=== PATIENT | female | born 1950 | race Caucasian/White ===

== ENCOUNTER → 2017-09-27 | Outpatient (CLI) | payer OTHER ==
[~2017-09-27] MED LIST: DICY20TA70 PO; GLY5 FT; LISI-349 PO; LISI20TA29 PO; MAX75 FT; PRA20 PO; PRAV40TA77 PO; ROSU20TA13 PO; SAXA1TBM PO; SITA1TBM4 PO; TRIA-19 PO; VITAMINS
--- NOTE | 2017-09-27 14:22 | RADIOLOGY IMAGING REPORT ---
FACILITY: [facility] PATIENT NAME: EDDIE KONG : [id number] MR: [id number] V: [id number] EXAM DATE: [id number] ORDERING PHYSICIAN: GRICELDA SCHAEFFER TECHNOLOGIST: Susan Narvaez PROCEDURE:BILATERAL DIGITAL SCREENING MAMMOGRAM WITH CAD ASSISTED INTERPRETATION & 3D TOMOSYNTHESIS COMPARISON:05/28/2013, 03/10/2012 INDICATIONS:SCREENING/FAMILY HISTORY OF BREAST CARCINOMA IN A PATERNAL AUNT & OVARIAN CARCINOMA IN A PATERNAL AUNT. VIEWS OBTAINED: Bilateral 2D full field CC & MLO & corresponding 3D tomography TISSUE DENSITY: Scattered fibroglandular densities. FINDINGS: There is no mammographic finding suspicious for malignancy, & no significant change compared to prior mammograms. DIAGNOSTIC CATEGORY 1--NEGATIVE. RECOMMENDATIONS: ROUTINE ANNUAL SCREENING BILATERAL MAMMOGRAM AND CLINICAL EVALUATION. IMPRESSION: BIRADS 1: Negative. Dictated by: Joselyn Kaur M.D. on 09/27/2017 at 12:16 Transcribed by: HOMER on 09/27/2017 at 13:23 Approved by: Joselyn Kaur M.D. on 09/27/2017 at 14:21 [facility]
== END ==
LOC: MAMO 02:48
PROVIDERS: ATTEND Emergency Medicine
DX: Z12.31 Encounter for screening mammogram for malignant neoplasm of breast (principal)
CPT/HCPCS: 77063; 77067

== ENCOUNTER 2018-03-13 01:47 | Inpatient (IN) | payer MEDICARE, OTHER ==
[2018-03-13] VITALS (7 sets, daily range): BP systolic 126–151; BP diastolic 66–77
[~2018-03-13] VITALS: Ht 154.9 cm; Wt 57.6 kg
[~2018-03-13 01:47] MED LIST changes: -ROSU20TA13 PO; +ROSU20TA5 PO
[2018-03-13] MEDS ORDERED: NS(*) 0.9% 1000 ML BAG 1,000 ML IV ONE ×2 (01:59→03:50)
--- NOTE | 2018-03-13 01:59 | ER Report ---
History and Physical Time Seen By MD: 01:50 HPI/ROS CHIEF COMPLAINT: abd pain HISTORY OF PRESENT ILLNESS: Pt states that tonight started to feel bloated "i thought i ate too much". at midnight developed sharp abdominal pain that is right sided. + nausea, + diarrhea. no vomiting. Unable to get comfortable. Pt had some radiation to back that just started. no dysuria. no hematuria. tried pepto but did not help. pain started at midnight. REVIEW OF SYSTEMS: Constitutional: No fever, no chills. Eyes: No discharge. ENT: No sore throat. Cardiovascular: No chest pain, no palpitations. Respiratory: No cough, no shortness of breath. Gastrointestinal: + abdominal pain, +nausea, +diarrhea, no vomiting. Genitourinary: No hematuria. Musculoskeletal: No back pain. Skin: No rashes. Neurological: No headache. Allergies: Coded Allergies: No Known Allergies (Verified Allergy, Intermediate, 03/16/09) Home Meds Active Scripts Sitagliptin Phos/Metformin Hcl (JANUMET XR 50-1,000 MG TABLET) 1 Each Tbmp.24hr , 1 EACH PO DAILY, #90 TAB 1 Refill Prov:GRICELDA SCHAEFFER MD 10/28/17 Rosuvastatin Calcium (Rosuvastatin Calcium) 20 Mg Tablet, 1 TAB PO DAILY, #30 TAB 11 Refills Prov:GRICELDA SCHAEFFER MD 10/11/17 Triamterene/Hydrochlorothiazid (MAXZIDE 37.5 MG-25 MG TABLET) 1 Each Tablet, 1 TAB PO DAILY, #90 TAB 3 Refills Prov:GRICELDA SCHAEFFER MD 09/10/17 Lisinopril (LISINOPRIL) 20 Mg Tablet, 1 TAB PO QDAY, #90 TAB 4 Refills Prov:KAYDEN STACY MD 06/05/17 Dicyclomine Hcl (DICYCLOMINE HCL) 20 Mg Tablet, 20 MG PO BID, #180 TAB 3 Refills Prov:KAYDEN STACY MD 05/27/17 Past Medical/Surgical History Pmhx: cervical ca, dm, htn, hyperlipid, ibs Pshx: ta, tubal Reviewed Nurses Notes: Yes Old Medical Records Reviewed: Yes Smoking Status: Former Smoker Hx Alcohol Use: No Constitutional Vital Sign - Last 24 Hours 03/13/18 03/13/18 03/13/1803/13/18 01:51 01:51 02:00 02:02 Temp 97.4 Pulse 77 78 Resp 16 B/P (MAP) 173/92 173/92 (119) 161/73 (102) Pulse Ox 98 99 O2 Delivery Room Air 03/13/18 03/13/18 03/13/18 03/13/18 02:17 02:30 02:32 02:37 Pulse 76 70 73 B/P (MAP) 162/78 (106) 162/78 (106) Pulse Ox 99 98 97 03/13/18 03/13/18 03/13/18 03/13/18 03:05 03:10 03:15 03:30 Pulse 80 75 B/P (MAP) 145/77 (99) 128/69 (88) Pulse Ox 94 98 94 03/13/18 03/13/18 03/13/18 03/13/18 03:45 03:50 04:00 04:05 Pulse 73 75 B/P (MAP) 129/75 (93) Pulse Ox 95 98 96 03/13/18 03/13/18 03/13/18 04:20 04:30 04:35 Pulse 80 86 B/P (MAP) 164/67 (99) Pulse Ox 96 94 Physical Exam General Appearance: The patient is alert, has no immediate need for airway protection and no signs of toxicity. Eyes: Pupils equal and round no pallor or injection, EOMI ENT: no pharyngeal erythema or exudates, Mucous membranes are moist Respiratory: There are no retractions, lungs are clear to auscultation. Cardiovascular: Regular rate and rhythm. pulses are equal and symmetrical Gastrointestinal: Abdomen is soft with r sided abdominal tender, no masses, bowel sounds decreased,+ guarding, no rigidity or rebound Neurological: Cranial nerves II-XII grossly intact, no sensory or motor loss Skin: Warm and dry, no rashes. Musculoskeletal: Neck is supple non tender, no vertebral tenderness Extremities are nontender, non swollen and have full range of motion. DIFFERENTIAL DIAGNOSIS: After history and physical exam differential diagnosis was considered for appendicitis, cholecystitis, coliitis, psbo, sbo Medical Decision Making Data Points Result Diagram: 03/13/1821703/13/18217 Laboratory Hematology Test 03/13/18 02:18 03/13/18 03:06 03/13/18 04:29 Red Blood Count 4.34 M/uL (4.17-5.56) Mean Corpuscular Volume 87.4 fL (80.0-96.0) Mean Corpuscular Hemoglobin 30.3 pg (26.0-33.0) Mean Corpuscular Hemoglobin Concent 34.6 g/dL (32.0-36.0) Red Cell Distribution Width 13.1 % (11.5-14.5) Mean Platelet Volume 6.6 fL (7.2-11.1) Neutrophils (%) (Auto) 66.1 % (39.4-72.5) Lymphocytes (%) (Auto) 25.8 % (17.6-49.6) Monocytes (%) (Auto) 6.2 % (4.1-12.4) Eosinophils (%) (Auto) 1.1 % (0.4-6.7) Basophils (%) (Auto) 0.8 % (0.3-1.4) Nucleated RBC Relative Count (auto) 0.1 /100WBC Neutrophils # (Auto) 4.5 K/uL (2.0-7.4) Lymphocytes # (Auto) 1.8 K/uL (1.3-3.6) Monocytes # (Auto) 0.4 K/uL (0.3-1.0) Eosinophils # (Auto) 0.1 K/uL (0.0-0.5) Basophils # (Auto) 0.1 K/uL (0.0-0.1) Nucleated RBC Absolute Count (auto) 0.01 K/uL Sodium Level 136 mmol/L (137-145) Potassium Level 3.9 mmol/L (3.5-5.0) Chloride Level 100 mmol/L (98-107) Carbon Dioxide Level 23 mmol/L (22-31) Blood Urea Nitrogen 22 mg/dl (7-18) Creatinine 1.10 mg/dl (0.52-1.04) Glomerular Filtration Rate Calc 49.8 Random Glucose 214 mg/dl (75-110) Calcium Level 9.3 mg/dl (8.4-10.2) Total Bilirubin 0.3 mg/dl (0.2-1.3) Aspartate Amino Transf (AST/SGOT) 20 U/L (0-35) Alanine Aminotransferase (ALT/SGPT) 29 U/L (0-56) Alkaline Phosphatase 69 U/L (0-126) Total Protein 7.2 g/dl (6.3-8.2) Albumin 4.4 g/dl (3.5-5.0) Lipase 251 U/L (23-300) Urine Color Yellow Urine Clarity Clear Urine pH 5.0 pH (4.8-9.5) Urine Specific [place] 1.036 Urine Protein Negative mg/dL (NEGATIVE) Urine Glucose (UA) 50 mg/dL (NEGATIVE) Urine Ketones Negative mg/dL (NEGATIVE) Urine Blood Negative (NEGATIVE) Urine Nitrite Negative (NEGATIVE) Urine Bilirubin Negative (NEGATIVE) Urine Urobilinogen Negative mg/dL (0.2-1.9) Urine Leukocyte Esterase Trace (NEGATIVE) Urine RBC 1 /HPF (0-2/HPF) Urine WBC 1 /HPF (0-5/HPF) Urine Squamous Epithelial Cells None /LPF (</=FEW) Urine Bacteria Negative /HPF (NONE-FEW) Urine Hyaline Casts Few /LPF (NONE-FEW) Urine Mucus Few /HPF (NONE-FEW) Stool Occult Blood (IFOB) Negative (NEGATIVE) Chemistry Test 03/13/18 02:18 03/13/18 03:06 03/13/18 04:29 White Blood Count 6.8 k/uL (4.5-11.0) Red Blood Count 4.34 M/uL (4.17-5.56) Hemoglobin 13.1 g/dL (12.0-16.0) Hematocrit 37.9 % (34.0-47.0) Mean Corpuscular Volume 87.4 fL (80.0-96.0) Mean Corpuscular Hemoglobin 30.3 pg (26.0-33.0) Mean Corpuscular Hemoglobin Concent 34.6 g/dL (32.0-36.0) Red Cell Distribution Width 13.1 % (11.5-14.5) Platelet Count 279 K/uL (150-450) Mean Platelet Volume 6.6 fL (7.2-11.1) Neutrophils (%) (Auto) 66.1 % (39.4-72.5) Lymphocytes (%) (Auto) 25.8 % (17.6-49.6) Monocytes (%) (Auto) 6.2 % (4.1-12.4) Eosinophils (%) (Auto) 1.1 % (0.4-6.7) Basophils (%) (Auto) 0.8 % (0.3-1.4) Nucleated RBC Relative Count (auto) 0.1 /100WBC Neutrophils # (Auto) 4.5 K/uL (2.0-7.4) Lymphocytes # (Auto) 1.8 K/uL (1.3-3.6) Monocytes # (Auto) 0.4 K/uL (0.3-1.0) Eosinophils # (Auto) 0.1 K/uL (0.0-0.5) Basophils # (Auto) 0.1 K/uL (0.0-0.1) Nucleated RBC Absolute Count (auto) 0.01 K/uL Glomerular Filtration Rate Calc 49.8 Calcium Level 9.3 mg/dl (8.4-10.2) Total Bilirubin 0.3 mg/dl (0.2-1.3) Aspartate Amino Transf (AST/SGOT) 20 U/L (0-35) Alanine Aminotransferase (ALT/SGPT) 29 U/L (0-56) Alkaline Phosphatase 69 U/L (0-126) Total Protein 7.2 g/dl (6.3-8.2) Albumin 4.4 g/dl (3.5-5.0) Lipase 251 U/L (23-300) Urine Color Yellow Urine Clarity Clear Urine pH 5.0 pH (4.8-9.5) Urine Specific [place] 1.036 Urine Protein Negative mg/dL (NEGATIVE) Urine Glucose (UA) 50 mg/dL (NEGATIVE) Urine Ketones Negative mg/dL (NEGATIVE) Urine Blood Negative (NEGATIVE) Urine Nitrite Negative (NEGATIVE) Urine Bilirubin Negative (NEGATIVE) Urine Urobilinogen Negative mg/dL (0.2-1.9) Urine Leukocyte Esterase Trace (NEGATIVE) Urine RBC 1 /HPF (0-2/HPF) Urine WBC 1 /HPF (0-5/HPF) Urine Squamous Epithelial Cells None /LPF (</=FEW) Urine Bacteria Negative /HPF (NONE-FEW) Urine Hyaline Casts Few /LPF (NONE-FEW) Urine Mucus Few /HPF (NONE-FEW) Stool Occult Blood (IFOB) Negative (NEGATIVE) Urinalysis Test 03/13/18 03:06 Urine Color Yellow Urine Clarity Clear Urine pH 5.0 pH (4.8-9.5) Urine Specific [place]co 1.036 Urine Protein Negative mg/dL (NEGATIVE) Urine Glucose (UA) 50 mg/dL (NEGATIVE) Urine Ketones Negative mg/dL (NEGATIVE) Urine Blood Negative (NEGATIVE) Urine Nitrite Negative (NEGATIVE) Urine Bilirubin Negative (NEGATIVE) Urine Urobilinogen Negative mg/dL (0.2-1.9) Urine Leukocyte Esterase Trace (NEGATIVE) Urine RBC 1 /HPF (0-2/HPF) Urine WBC 1 /HPF (0-5/HPF) Urine Squamous Epithelial Cells None /LPF (</=FEW) Urine Bacteria Negative /HPF (NONE-FEW) Urine Hyaline Casts Few /LPF (NONE-FEW) Urine Mucus Few /HPF (NONE-FEW) EKG/Imaging Imaging psbo with transition point; multifocal areas of small bowel wall thickening vs underdistention . ED Course/Re-evaluation Clinical Indication for ER IV: Hydration, IV Access ED Course 03/13/2018 3:07:18 am Pt back from CT. pt states pain has improved since first medicated but not gone. Pain is localized to rlq at this time. no longer nauseated. Will remedicate while awaiting CT. pts labs stable accept for slight increase in her creatine. Fluids are hanging. 03/13/2018 3:49:[address] report with surgery. He will be in to evaluate patient. 03/13/2018 4:49:10 am Pt seen and admitted by Surgery. Decision to Disposition Date: Mar 13, 2018 Decision to Disposition Time: 03:49 Depart Departure Latest Vital Signs Vital Signs Date Time Temp Pulse Resp B/P (MAP) Pulse Ox O2 Delivery O2 Flow Rate FiO2 03/13/18 04:35 86 94 03/13/18 04:30 164/67 (99) 03/13/18 01:51 97.4 16 Room Air Impression: Primary Impression: Partial obstruction of small intestine Additional Impression: Inflammatory bowel disease Condition: Condition Unchanged Disposition: Admitted from ER Referrals: GRICELDA SCHAEFFER MD (PCP) Problem Qualifiers GREY HERNANDEZ DO Mar 13, 2018 01:59
[2018-03-13] MEDS ORDERED: ONDANSETRON 4 MG/2 ML VIAL IVP ONE (02:00)
[2018-03-13] MEDS ORDERED: MORPHINE 4 MG/ML SDV IVP ONE ×2 (02:00→03:10)
[2018-03-13] MEDS ORDERED: IOPAMIDOL 76% 75 ML INFUS BTL 75 ML ONE (02:34)
[2018-03-13 02:35] LABS: PLATELET COUNT, AUTOMATED 279 K/uL (150-450)
--- NOTE | 2018-03-13 03:30 | RADIOLOGY IMAGING REPORT ---
FACILITY: PATIENT NAME: Lizzeth Bell : 1950 MR: [id number] V: [id number] EXAM DATE: ORDERING PHYSICIAN: GREY HERNANDEZ TECHNOLOGIST: Location: [facility] - [place] Patient: Lizzeth Bell : 1950 Visit/Account:[id number] Date of Sevice: 03/13/2018 ABDOMEN/PELVIS WITH CONTRAST HISTORY: Right-sided abdominal pain and nausea. TECHNIQUE: CT abdomen and pelvis with intravenous contrast. One of the following dose optimization techniques was utilized in the performance of this exam: Autom ated exposure control; adjustment of the mA and/or kV according to the patient's size; or use of an i terative reconstruction technique. Specific details can be referenced in the facility's radiology C T exam operational policy. CONTRAST: 75 mL Isovue-370. COMPARISON: None. FINDINGS: Visualized lung bases: Negative. Hepatobiliary: Negative. Spleen: Negative. Adrenals: Negative. Pancreas: Incidental note of pancreatic divisum. Otherwise negative. Kidneys/: Negative. GI: Prominent loops of small bowel within the lower abdomen measuring up to 2.6 cm with moderate asso ciated mesenteric edema. No visualized pneumatosis. There is a focal transition point identified with in the left lower quadrant (axial image 310 of series 3). With decompressed loops of bowel distally. There is apparent multifocal small bowel wall thickening which may be related to decompression. Vessels/spaces/nodes: Mild atherosclerosis. Trace free fluid within the pelvis. Mesenteric edema wit hin the left lower quadrant. Bones/soft tissues: Negative. IMPRESSION: 1. Findings of partial small bowel obstruction with dilated loops of small bowel predominantly in the lower abdomen measuring up to 2.6 cm, with moderate associated mesenteric edema. No visualized pneum atosis. There is a focal transition point within the left lower quadrant of unclear etiology. 2. Multifocal areas of apparent small bowel wall thickening which may be related to underdistention h owever cannot completely exclude inflammatory bowel disease. 3. Incidental note of pancreatic divisum. Results were discussed with GREY HERNANDEZ at 03/13/2018 3:23 AM. Report Dictated By: Rigo Carty MD at 03/13/2018 3:12 AM Report E-Signed By: Rigo Carty MD at 03/13/2018 3:25 AM [id number]
[2018-03-13] MEDS ORDERED: KCL/D1/2NS 20 MEQ 1000 ML 1,000 ML IV PRN (04:49)
[2018-03-13] MEDS ORDERED: NALOXONE HCL 0.4 MG/ML VIAL IVP PRN (04:50)
[2018-03-13] MEDS ORDERED: MORPHINE 4 MG/ML SDV IVP PRN (04:50)
[2018-03-13] MEDS ORDERED: ONDANSETRON 4 MG/2 ML VIAL IVP PRN (04:50)
[2018-03-13] MEDS: FAMOTIDINE(*) 20MG/50ML PREMIX 50 ML IVPB SCH ×3 (05:19→23:55)
[2018-03-13] MEDS: LR(*) 1000 ML BAG 1,000 ML IV PRN (07:29)
[2018-03-13 12:17] LABS: PLATELET COUNT, AUTOMATED 237 K/uL (150-450)
[2018-03-13] MEDS ORDERED: INSULIN HUM LISPRO 100 UN/ML 3 ML VIAL SUBQ PRN (14:00)
[2018-03-13] MEDS ORDERED: hydrALAZINE HCL 10 MG TAB PO PRN (16:55)
--- NOTE | 2018-03-13 16:55 | General Surgery Progress Note ---
Subjective Progress Notes Subjective Feels well; No further pain or pain med requirement; No Flatus; No BM; + Hungry Patient Complains of: Neurological: No: Syncope, Confusion, Weakness Cardiovascular: No: Chest Pain Respiratory: No: Cough, Congestion, Shortness of Breath Gastrointestinal: No Vomiting, No Flatus, No Bowel Movement Genitourinary: No Dysuria Musculoskeletal: No: Pain Physical Exam Vital Signs Date Time Temp Pulse Resp B/P (MAP) Pulse Ox O2 Delivery O2 Flow Rate FiO2 03/13/18 14:46 98.2 78 16 151/77 (101) 94 Room Air Intake and Output 03/14/18 07:00 Intake Total 0 ml Output Total 550 ml Balance -550 ml Intake Oral 0 ml Output Urine Total 550 ml # Voids 3 General Appearance: Alert, Awake, No Acute Distress, Afebrile Neuro: No Gross deficits Eyes: PERRLA, Other (EOMI) ENT: Normal, Moist Mucous Membranes Cardiovascular: Normal Rhythm & Peripheral Pulses, Regular Rate and Rhythm Respiratory: No Respiratory Distress, Clear to Auscultation GI: Soft and Non-Tender, Other (Hyperactive Bowel Sounds; No peritoneal signs) Musculoskeletal: No Weakness/Pain Extremities: Soft and Non Tender, Warm, Pulses, Perfused, No Edema Integumentary: Skin Intact without Lesion / Mass Psych: Alert & Oriented X3, Appropriate Mood & Affect Result Diagram: 03/13/18 1212 03/13/18 1401 Assessment and Plan Problems: (1) Small bowel obstruction Status: Acute Assessment & Plan: 03/13/18: Edema and wall thickening n admit CT; Now without pain; No BM and No flatus; NPO at this time; No NG tube (2) Irritable bowel syndrome Status: Chronic Assessment & Plan: Hx of IBS (3) Elevated serum creatinine Status: Acute Assessment & Plan: 03/13/18: Hydration and monitor Creatinine BUN/Cr 13/0.8- improved (4) Radiation therapy complication Status: Chronic (5) Type II diabetes mellitus Status: Chronic Assessment & Plan: 03/13/18: Glucose controlled; Home meds on hold; SSI ordered but no requirement at this time (6) Hypertension Status: Chronic Assessment & Plan: 03/13/18: Maxzide started; Lisinopril HELD (7) History of cervical cancer *Optional Permanent Comment*: Stage IIIB ,2006,s/p radiation and weekly chemo to 03/17. cancer complicated by severe iron deficiency anemia, possible radiation proctitis Last Edited By: Jeni Rogel MD on Sep 09, 2017 15:34 Status: Chronic (8) Hyperlipidemia Status: Chronic Assessment & Plan: 03/13/18: Rosuvastatin (9) At risk for deep venous thrombosis Status: Acute Assessment & Plan: 03/13/18: Lovenox and SCDs Time Spent: > 30 min Exam Sepsis Risk: No Definite Risk Problem Qualifiers (1) Radiation therapy complication: Encounter type: sequela Qualified Codes: T66.XXXS - Radiation sickness, unspecified, sequela (2) Type II diabetes mellitus: Diabetes mellitus snf insulin use: without snf use Diabetes mellitus complication status: without complication Qualified Codes: E11.9 - Type 2 diabetes mellitus without complications (3) Hypertension: Hypertension type: essential hypertension Qualified Codes: I10 - Essential ( primary) hypertension (4) Hyperlipidemia: Hyperlipidemia type: unspecified Qualified Codes: E78.5 - Hyperlipidemia, unspecified MAGGIE GOYAL MD Mar 13, 2018 16:55
[2018-03-13] MEDS: ENOXAPARIN 40 MG/0.4ML SYR SC SCH (17:03)
[2018-03-13] MEDS: ROSUVASTATIN CALCIUM 10 MG TAB PO SCH (17:03)
[2018-03-13] MEDS: TRIAMTERENE/HCTZ 37.5-25MG CAPSULE PO SCH (17:06)
[2018-03-13] MEDS ORDERED: FAMOTIDINE 20 MG/50 ML PREMIX IVPB SCH (20:00)
[2018-03-14 00:06] VITALS: BP 137/76
[2018-03-14] MEDS: LR(*) 1000 ML BAG 1,000 ML IV PRN (01:52)
[2018-03-14 03:16] VITALS: BP 164/88
[2018-03-14 03:22] VITALS: BP 164/80
[2018-03-14 06:25] VITALS: BP 123/65
[2018-03-14 07:25] VITALS: BP 147/83
[2018-03-14] MEDS: ROSUVASTATIN CALCIUM 10 MG TAB PO SCH (08:25)
[2018-03-14] MEDS: ENOXAPARIN 40 MG/0.4ML SYR SC SCH (08:25)
[2018-03-14] MEDS: TRIAMTERENE/HCTZ 37.5-25MG CAPSULE PO SCH (08:25)
[2018-03-14 08:58] VITALS: Ht 154.9 cm; Wt 57.6 kg
[2018-03-14] MEDS ORDERED: FAMOTIDINE(*) 20MG/50ML PREMIX 50 ML IVPB SCH (09:00)
[2018-03-14 10:41] VITALS: BP 142/72
--- NOTE | 2018-03-14 12:14 | General Surgery Progress Note ---
Subjective Progress Notes Subjective Sarika liquids; + BM x 2, + Flatus Patient Complains of: Neurological: No: Syncope, Weakness Cardiovascular: No: Chest Pain Respiratory: No: Cough, Shortness of Breath Gastrointestinal: Flatus, Bowel Movement, No Nausea, No Vomiting Musculoskeletal: No: Impaired Mobility Physical Exam Vital Signs Date Time Temp Pulse Resp B/P (MAP) Pulse Ox O2 Delivery O2 Flow Rate FiO2 03/14/18 10:41 98.3 67 18 142/72 (95) 97 Room Air Intake and Output 03/15/18 07:00 Intake Total 590 ml Balance 590 ml Intake Oral 540 ml IV Total 50 ml # Voids 1 # Bowel Movements 1 General Appearance: Alert, Awake, No Acute Distress, Afebrile Neuro: No Gross deficits Eyes: PERRLA, Other (EOMI) ENT: Normal, Moist Mucous Membranes Cardiovascular: Normal Rhythm & Peripheral Pulses, Regular Rate and Rhythm, No Edema Respiratory: No Respiratory Distress, Clear to Auscultation GI: Soft and Non-Tender, Other (Active Bowel sounds) Musculoskeletal: No Weakness/Pain Extremities: Warm, Pulses, Perfused, No Edema Integumentary: Skin Intact without Lesion / Mass Psych: Alert & Oriented X3, Appropriate Mood & Affect Result Diagram: 03/13/18 1212 03/13/18 1401 Assessment and Plan Problems: (1) Small bowel obstruction Status: Acute Assessment & Plan: 03/13/18: Edema and wall thickening on admit CT; Now without pain; No BM and No flatus; NPO at this time; No NG tube 03/14/18: Non tender; tole liquid diet; + BM x 2; daughter with UC per pt; PLAN: Advance diet to soft mechanical; will need Inflammatory bowel colonoscopy and followup as this is a potential diagnosis (2) Irritable bowel syndrome Status: Chronic Assessment & Plan: Hx of IBS (3) Elevated serum creatinine Status: Acute Assessment & Plan: Hydration and monitor Creatinine BUN/Cr (13/0. - improved) (4) Radiation therapy complication Status: Chronic (5) Type II diabetes mellitus Status: Chronic Assessment & Plan: 03/13/18: Glucose controlled; Home meds on hold; SSI ordered but no requirement at this time 03/14/18: No hypoglycemic events; Home medication held while on SSI (6) Hypertension Status: Chronic Assessment & Plan: 03/13/18: Maxzide started; Lisinopril HELD 03/14/18: Will resume home lisinopril once taking PO (7) History of cervical cancer *Optional Permanent Comment*: Stage IIIB ,2006,s/p radiation and weekly chemo to 03/17. cancer complicated by severe iron deficiency anemia, possible radiation proctitis Last Edited By: Jeni Rogel MD on Sep 09, 2017 15:34 Status: Chronic (8) Hyperlipidemia Status: Chronic Assessment & Plan: PO Rosuvastatin (9) At risk for deep venous thrombosis Status: Acute Assessment & Plan: Lovenox and SCDs Exam Sepsis Risk: No Definite Risk Problem Qualifiers (1) Radiation therapy complication: Encounter type: sequela Qualified Codes: T66.XXXS - Radiation sickness, unspecified, sequela (2) Type II diabetes mellitus: Diabetes mellitus fpc insulin use: without fpc use Diabetes mellitus complication status: without complication Qualified Codes: E11.9 - Type 2 diabetes mellitus without complications (3) Hypertension: Hypertension type: essential hypertension Qualified Codes: I10 - Essential ( primary) hypertension (4) Hyperlipidemia: Hyperlipidemia type: unspecified Qualified Codes: E78.5 - Hyperlipidemia, unspecified MAGGIE GOYAL MD Mar 14, 2018 12:14
--- NOTE | 2018-03-14 15:36 | Hospitalist Depart ---
Discharge Summary Reason for Hosp/Final Diag: (1) Small bowel obstruction Status: Acute Hospital Course & Plan: 03/13/18: Edema and wall thickening on admit CT; Now without pain; No BM and No flatus; NPO at this time; No NG tube 03/14/18: Non tender; tole liquid diet; + BM x 2; daughter with UC per pt; PLAN: Advance diet to soft mechanical; will need Inflammatory bowel colonoscopy and followup as this is a potential diagnosis (2) Irritable bowel syndrome Status: Chronic Hospital Course & Plan: Hx of IBS (3) Elevated serum creatinine Status: Acute Hospital Course & Plan: Hydration and monitor Creatinine BUN/Cr (130. - improved) (4) Radiation therapy complication Status: Chronic (5) Type II diabetes mellitus Status: Chronic Hospital Course & Plan: 03/13/18: Glucose controlled; Home meds on hold; SSI ordered but no requirement at this time 03/14/18: No hypoglycemic events; Home medication held while on SSI (6) Hypertension Status: Chronic Hospital Course & Plan: 03/13/18: Maxzide started; Lisinopril HELD 03/14/18: Will resume home lisinopril once taking PO (7) History of cervical cancer *Optional Permanent Comment*: Stage IIIB ,2006,s/p radiation and weekly chemo to 03/17. cancer complicated by severe iron deficiency anemia, possible radiation proctitis Last Edited By: Jeni Rogel MD on Sep 09, 2017 15:34 Status: Chronic (8) Hyperlipidemia Status: Chronic Hospital Course & Plan: PO Rosuvastatin (9) At risk for deep venous thrombosis Status: Acute Hospital Course & Plan: Lovenox and SCDs Departure Weight (Pounds): 127 Result Diagram: 03/13/18 1212 03/13/18 1401 Condition: Improved Discharge: Home Discharge Code Status: Full Code Discharge Instructions Home Meds Active Scripts Sitagliptin Phos/Metformin Hcl (JANUMET XR 50-1,000 MG TABLET) 1 Each Tbmp.24hr , 1 EACH PO DAILY, #90 TAB 1 Refill Prov:JENI ROGEL MD 10/28/17 Rosuvastatin Calcium (Rosuvastatin Calcium) 20 Mg Tablet, 1 TAB PO DAILY, #30 TAB 11 Refills Prov:JENI ROGEL MD 10/11/17 Triamterene/Hydrochlorothiazid (MAXZIDE 37.5 MG-25 MG TABLET) 1 Each Tablet, 1 TAB PO DAILY, #90 TAB 3 Refills Prov:JENI ROGEL MD 09/10/17 Lisinopril (LISINOPRIL) 20 Mg Tablet, 1 TAB PO QDAY, #90 TAB 4 Refills Prov:KAYDEN STACY MD 06/05/17 Dicyclomine Hcl (DICYCLOMINE HCL) 20 Mg Tablet, 20 MG PO BID, #180 TAB 3 Refills Prov:KAYDEN STACY MD 05/27/17 Diet: Diabetic (Soft Mechanical Diet) Activity: As Tolerated Special Instructions: Resume pre admission home medications today Call Dr Britt's office for scheduling an upper and lower endocopy [phone] (ask for his nurse) Copies to: ALEX BRITT MD Venous Thromboembolism VTE Risk Physician Assess for VTE Risk: Yes Patient's VTE Risk: High VTE Diagnostic Test 2 Days Prior to Admit: No Antithrombotics Is Pt On Any Antithrombotics?: Yes Problem Qualifiers (1) Radiation therapy complication: Encounter type: sequela Qualified Codes: T66.XXXS - Radiation sickness, unspecified, sequela (2) Type II diabetes mellitus: Diabetes mellitus ferry terminal agent insulin use: without ferry terminal agent use Diabetes mellitus complication status: without complication Qualified Codes: E11.9 - Type 2 diabetes mellitus without complications (3) Hypertension: Hypertension type: essential hypertension Qualified Codes: I10 - Essential ( primary) hypertension (4) Hyperlipidemia: Hyperlipidemia type: unspecified Qualified Codes: E78.5 - Hyperlipidemia, unspecified MAGGIE GOYAL MD Mar 14, 2018 15:36
== END 2018-03-14 15:45 | disposition home or self-care (01) | DRG 390 ==
LOC: ER 02:14 → PED 05:02 → MED 10:47
PROVIDERS: ADMIT Surgery; ATTEND Surgery
DX: K56.600 Partial intestinal obstruction, unspecified as to cause (principal); K58.9 Irritable bowel syndrome, unspecified; E11.9 Type 2 diabetes mellitus without complications; K62.7 Radiation proctitis; I10 Essential (primary) hypertension; E78.5 Hyperlipidemia, unspecified; C53.9 Malignant neoplasm of cervix uteri, unspecified; T66.XXXA Radiation sickness, unspecified, initial encounter; Z92.21 Personal history of antineoplastic chemotherapy; Z87.891 Personal history of nicotine dependence; Z79.4 Long term (current) use of insulin
CPT/HCPCS: 36415; 36416; 74177; 81001; 82040; 82247; 82274; 82310; 82374; 82435; 82565; 82947; 82948; 83605; 83690; 84075; 84132; 84155; 84295; 84450; 84460; 84520; 85007; 85025; 85027; J1650; J2270; J2405; J3480; J3490; J7030; J7120; Q9967

== ENCOUNTER 2018-04-09 01:36 | Day surgery (SDC) | payer MEDICARE, OTHER ==
[2018-03-14 08:58] VITALS: Ht 154.9 cm; Wt 56.2 kg
[~2018-04-09] VITALS: Ht 154.9 cm; Wt 56.2 kg
[~2018-04-09 01:36] MED LIST changes: +ASPI-1471 PO
[2018-04-09] MEDS ORDERED: GLYCOPYRROLATE 0.2MG/ML 1 ML INJ IVP ONE (06:45)
[2018-04-09] MEDS ORDERED: NORMOSOL R SOLN(*) 1000 ML BAG 1,000 ML IV PRN (07:50)
[2018-04-09] MEDS ORDERED: LIDOCAINE/SOD BICARB 8.4% SYR ID ONE (07:50)
[2018-04-09 08:00] VITALS: BP 142/77
[2018-04-09] MEDS ORDERED: PROPOFOL EMUL(*) 10MG/ML 20 ML 60 ML ONE (08:09)
[2018-04-09] MEDS ORDERED: LIDOCAINE MPF 1% 5 ML VIAL ONE (08:09)
[2018-04-09 08:21] LABS: PLATELET COUNT, AUTOMATED 293 K/uL (150-450)
[2018-04-09 10:41] VITALS: BP 118/70
--- NOTE | 2018-04-09 10:48 | Short(Outpt) Discharge Summary ---
Discharge Summary Reason for Hosp/Final Diag: (1) Family history of inflammatory bowel disease Hospital Course & Plan: EGD with biopsies and colonoscopy with TI biopsies, colon bx, and polypectomy x2 completed without problems. (2) Enteritis Status: Chronic (3) Right lower quadrant pain Status: Chronic (4) Partial obstruction of small intestine Status: Resolved Departure Discharge to: Home, Self Care Discharge Instructions Home Meds Active Scripts Sitagliptin Phos/Metformin Hcl (JANUMET XR 50-1,000 MG TABLET) 1 Each Tbmp.24hr, 1 EACH PO DAILY, #90 TAB 1 Refill Prov:GRICELDA SCHAEFFER MD 10/28/17 Rosuvastatin Calcium (Rosuvastatin Calcium) 20 Mg Tablet, 1 TAB PO DAILY, #30 TAB 11 Refills Prov:GRICELDA SCHAEFFER MD 10/11/17 Triamterene/Hydrochlorothiazid (MAXZIDE 37.5 MG-25 MG TABLET) 1 Each Tablet, 1 TAB PO DAILY, #90 TAB 3 Refills Prov:GRICELDA SCHAEFFER MD 09/10/17 Lisinopril (LISINOPRIL) 20 Mg Tablet, 1 TAB PO QDAY, #90 TAB 4 Refills Prov:KAYDEN STACY MD 06/05/17 Dicyclomine Hcl (DICYCLOMINE HCL) 20 Mg Tablet, 20 MG PO BID, #180 TAB 3 Refills Prov:KAYDEN STACY MD 05/27/17 Reported Medications Aspirin (ASPIR 81) 81 Mg Tablet.dr, 81 MG PO QDAY, TAB 03/18/18 Diet: Regular Activity: As Tolerated Special Instructions: Your upper endoscopy and your colonoscopy were completed without problems. I took biopsies throughout your GI tract and I removed 2 polyps from your colon and all of this tissue was sent to pathology. I didn't find anything concerning in your GI tract, no inflammation, no signs of Crohn's disease or ulcerative colitis, or cancer. My office will call you in the next couple of days to schedule you for a special CT scan that looks particularly at your small intestines and to schedule a follow up appointment to see me back in my office. ALEX BRITT MD Apr 09, 2018 10:48
[2018-04-09 11:15] VITALS: BP 139/71
[2018-04-09 11:27] VITALS: BP 135/75
[2018-04-09 11:29] VITALS: BP 134/77
== END 2018-04-09 11:45 | disposition home or self-care (01) ==
LOC: OR 01:36
PROVIDERS: ATTEND Surgery
DX: D12.2 Benign neoplasm of ascending colon (principal); D12.3 Benign neoplasm of transverse colon
CPT/HCPCS: 00811; 36415; 43239; 45385; 82248; 83516; 85025; 85651; 86140; 87077; 88305; J2001; J2704; J3490; 82040; 82247; 82310; 82374; 82435; 82565; 82947; 84075; 84132; 84155; 84295; 84450; 84460; 84520

== ENCOUNTER → 2018-04-15 | Outpatient (CLI) | payer MEDICARE, OTHER ==
[2018-03-14 08:58] VITALS: BMI 24.0
[~2018-04-15] MED LIST changes: +BARIUM SULFATE 450 ML SUSP ONE; +IOPAMIDOL 76% 75 ML INFUS BTL 75 ML ONE
--- NOTE | 2018-04-15 15:52 | RADIOLOGY IMAGING REPORT ---
FACILITY: [facility] - [place] PATIENT NAME: Lizzeth Bell : 1950 MR: [id number] V: [id number] EXAM DATE: ORDERING PHYSICIAN: ALEX BRITT TECHNOLOGIST: Location: [facility] - [place] Patient: Lizzeth Bell : 1950 Visit/Account:[id number] Date of Sevice: 04/15/2018 ADDENDUM #1 Dose Lowering Technique One of the following dose optimization techniques was utilized in the performance of this exam: Autom ated exposure control; adjustment of the mA and/or kV according to the patient's size; or use of an i terative reconstruction technique. Specific details can be referenced in the facility's radiology C T exam operational policy. Report Dictated By: Sadie Posadas MD at 04/15/2018 4:34 PM Report E-Signed By: Sadie Posadas MD at 04/15/2018 4:34 PM ORIGINAL REPORT ENTEROGRAPHY ABD/PEL W/CONTR HISTORY: Partial obstruction of small intestine, enteritis TECHNIQUE: Following administration of IV contrast contiguous axial images acquired through the abdom en/pelvis. Coronal and sagittal reformatting also performed. CONTRAST: 75 mL Isovue-370, 1350 mL of Volumen was utilized as an oral contrast COMPARISON: CT abdomen pelvis March 13, 2018 FINDINGS: Visualized lung bases: Negative. Hepatobiliary: Negative. Spleen: Negative. Adrenals: Negative. Pancreas: Negative. Kidneys ureters or bladder: Negative. Genitalia: Negative. GI: There is a circumferential thickening of a 2.3 cm long segment in the second portion the duodenu m just beyond the duodenal bulb producing marked luminal narrowing. This is best appreciated on axia l images 41 through 47 on series 2. There several mildly distended loops of jejunum in the left uppe r quadrant of abdomen measuring up to 2.7 cm in diameter with mild thickening of the jejunal wall dif fusely although the previously noted transitional point in the left lower quadrant is no longer ident ified Vessels/spaces/nodes: Mild atherosclerotic calcifications Bones/soft tissues: No aggressive appearing bone lesions are seen Additional findings: None pertinent. IMPRESSION: There is circumferential thickening of a 2.3 cm long segment of the second portion the duodenum just beyond the duodenal bulb as detailed above.. This could represent a focal area of inflammation altho ugh neoplastic narrowing not excluded the latter is much less likely since this was not apparent on t he recent CT. Mildly distended loops of jejunum in the left upper quadrant of abdomen with diffuse wall thickening although the previously noted transitional point is not seen Report Dictated By: Sadie Posadas MD at 04/15/2018 3:16 PM Report E-Signed By: Sadie Posadas MD at 04/15/2018 3:48 PM WSN:[id number]
== END ==
LOC: CT 07:06
PROVIDERS: ATTEND Surgery
DX: I25.10 Atherosclerotic heart disease of native coronary artery without angina pectoris (principal); K31.89 Other diseases of stomach and duodenum
CPT/HCPCS: 74177; Q9967

== ENCOUNTER → 2018-06-10 | Outpatient (CLI) | payer MEDICARE, OTHER ==
[2018-03-14 08:58] VITALS: BMI 24.0
[~2018-06-10] MED LIST changes: -BARIUM SULFATE 450 ML SUSP ONE; -IOPAMIDOL 76% 75 ML INFUS BTL 75 ML ONE
[2018-06-10 09:18] LABS: PLATELET COUNT, AUTOMATED 251 K/uL (150-450)
[2018-06-10 10:32] LABS: LDL CHOLESTEROL 58 mg/dl
== END ==
LOC: LAB 09:00
PROVIDERS: ATTEND Emergency Medicine
DX: E78.5 Hyperlipidemia, unspecified (principal); E11.9 Type 2 diabetes mellitus without complications
CPT/HCPCS: 36415; 82040; 82247; 82310; 82374; 82435; 82465; 82565; 82947; 83036; 83718; 84075; 84132; 84155; 84295; 84450; 84460; 84478; 84520; 85025

== ENCOUNTER → 2018-06-13 | Outpatient (CLI) | payer MEDICARE, OTHER ==
[2018-03-14 08:58] VITALS: BMI 24.0
[~2018-06-13] MED LIST changes: +CYAN500T38 PO; +FLU180SY11 IM; +PNEU0.5D3 IM
== END ==
LOC: LAB 10:53
PROVIDERS: ATTEND Emergency Medicine
DX: R20.8 Other disturbances of skin sensation (principal)
CPT/HCPCS: 36415; 82607

== ENCOUNTER → 2018-06-19 | Outpatient (CLI) | payer MEDICARE, OTHER ==
[2018-03-14 08:58] VITALS: BMI 24.0
--- NOTE | 2018-06-19 19:14 | RADIOLOGY IMAGING REPORT ---
[facility] PATIENT NAME: Lizzeth Bell : 1950 MR: [id number] V: [id number] EXAM DATE: ORDERING PHYSICIAN: GRICELDA SCHAEFFER TECHNOLOGIST: Location: [facility] - [place] Patient: Lizzeth Bell : 1950 Visit/Account:[id number] Date of Sevice: 06/19/2018 DEXA Scan Clinical history: Postmenopausal. Comparison: None available. LUMBAR SPINE: The bone mineral density (BMD) measured from T12-L4 correlates with a Z-score -0.6 and a T-score of 1 .2 which is Normal as defined by the World Health Organization. The corresponding risk of fracture i n the lumbar spine is Not increased compared with a young adult reference population. HIP: Bone mineral density (BMD) measured in the Left total hip region correlates with a Z-score is 0.7 and a T-score of 0.6 which is Normal as defined by the World Health Organization. The corresponding ris k of fracture in the hip is Not increased compared with a young adult reference population. Bone mineral density (BMD) measured in the Femoral Neck region measures 0.916 g/cm2. Impression: 1. Lumbar spine: Normal. 2. Left Hip: Normal. 3. Femoral Neck: Bone Mineral Density is 0.916 g/cm2 The next DEXA scan of this patient should include the following sites: T12-L4, left hip. FRAX? WHO Fracture Risk Assessment Tool link: <http://www.shef.ac.uk/FRAX/tool.jsp?locationValue=9> PLEASE NOTE: 1) The World Health Organization defines low BMD as follows: T-score Normal > -1 Osteopenia < -1 and > -2.5 Osteoporosis < -2.5 without fractures Established osteoporosis < -2.5 with fractures 2) In general, you may wish to consider: Diagnosis Treatment Follow-up DEXA Normal BMD Prevention 2-3 years Osteopenia Prevention/therapy 1-2 years Osteoporosis Therapy Yearly 3) Fracture risk estimated from the T-score is more accurate for vertebral fractures (often spontane ous) than for hip fractures. Report Dictated By: Teo Pierson DO at 06/19/2018 6:55 PM Report E-Signed By: Teo Pierson DO at 06/19/2018 7:10 PM WSN:[id number]
== END ==
LOC: RAD 07:19
PROVIDERS: ATTEND Emergency Medicine
DX: Z78.0 Asymptomatic menopausal state (principal)
CPT/HCPCS: 77080

== ENCOUNTER → 2018-09-10 | Outpatient (CLI) | payer MEDICARE, OTHER ==
[2018-03-14 08:58] VITALS: BMI 24.0
== END ==
LOC: LAB 09:01
PROVIDERS: ATTEND Emergency Medicine
DX: E11.9 Type 2 diabetes mellitus without complications (principal); R20.8 Other disturbances of skin sensation
CPT/HCPCS: 36415; 82607; 83036

== ENCOUNTER → 2018-12-04 | Outpatient (CLI) | payer MEDICARE, OTHER ==
[2018-03-14 08:58] VITALS: BMI 24.0
== END ==
LOC: LAB 09:40
PROVIDERS: ATTEND Emergency Medicine
DX: E11.9 Type 2 diabetes mellitus without complications (principal)
CPT/HCPCS: 36415; 83036